=== PATIENT | male | born 1980 | race Caucasian/White ===

== ENCOUNTER 2016-10-13 15:35 | Emergency (ER) | payer OTHER | END 2016-10-13 18:51 | disposition home or self-care (01) | LOC: ER 15:35 | DX: R07.89 Other chest pain (principal); M25.511 Pain in right shoulder; M25.512 Pain in left shoulder; M79.601 Pain in right arm; M79.602 Pain in left arm; R06.00 Dyspnea, unspecified; R42 Dizziness and giddiness; I10 Essential (primary) hypertension; Z79.82 Long term (current) use of aspirin | CPT/HCPCS: 36415; 96374 ==